=== PATIENT | female | born 1960 | race Caucasian/White ===

== ENCOUNTER → 2017-05-24 | Outpatient (CLI) | payer BC ==
[~2017-05-24] MED LIST: diphenhydrAMINE 50 MG/ML 1 ML VIAL IVP STA; methylPREDNISolone SOD SUCCI 125 MG/2 ML VIAL IV STA
[2017-05-24 13:36] LABS: Blood Urea Nitrogen 13 mg/dL (7-17); Non-African American GFR(MDRD) >60 (>60 ml/min/1.73 sqM)
[2017-05-24 16:11] VITALS: BP 143/83; PULSE 100; RESP 16
--- NOTE | 2017-05-24 16:26 | CT ---
EXAMINATION TYPE: CT urogram wo/w con DATE OF EXAM: 05/24/2017 HISTORY: Gross hematuria started [address] DLP: 2144mGycm Automated Exposure Control for Dose Reduction was Utilized. CONTRAST: CT scan of the abdomen and pelvis is performed with IV Contrast, patient injected with 100 mL of Omni paque 300. Multiphasic urogram protocol was performed with 3-D reformats performed at a separate work station for review. Coronal and sagittal reformats were obtained. COMPARISON: None. FINDINGS: LUNG BASES: No significant abnormality is appreciated. LIVER/GB: 1.2 cm indeterminate peripherally ill-defined hypoattenuated hepatic lesion within segment 6 of the liver on series 3 image 23 is seen. Minimal periportal edema is present, likely related to h ydration status. No biliary ductal dilatation is noted. On precontrast imaging there is no evidence o f hepatic steatosis. PANCREAS: No significant abnormality is seen. SPLEEN: No significant abnormality is seen. ADRENALS: No significant abnormality is seen. KIDNEYS: On the unenhanced images there are at least 7 punctate nonobstructing left renal calculi kaykay suring 1 to 2 cm each and at least 5 1 to 2 mm punctate nonobstructing right renal calculi. 3 mm left lower pole hypoattenuated lesion appears similar on cortical medullary phase as it does on delayed i maging and likely relates to a renal cyst. On delayed images there is no evidence of ureteral filling defect, hydronephrosis, or ureteral strict ure on the left. However, there is a long segment anterior eccentric filling defect within the right mid to distal ureter beginning at the level of L4 and extending over approximately 5.5 cm dilating th e ureter and measuring up to 1.2 x 1.2 cm in transverse by anterior posterior dimension such as on se paulo 14 image 40. This is incompletely obstructive creating moderate right hydroureteronephrosis and engorgement of the right pelvis. Tortuosity of the proximal right ureter is incidentally noted, likel y congenital. BOWEL: No significant abnormality is seen. Appendix is air-filled and within normal limits. No focal bowel wall thickening although evaluation for this is slightly limited given the lack of oral contra st. UTERUS/ADNEXA: No gross abnormality seen. LYMPH NODES: No greater than 1cm abdominal or pelvic lymph nodes are appreciated. Nonenlarged 4 mm ri ght common iliac lymph node is seen on series 9 image 48. [place] of vessels is seen anterior to t he right ureter on series 9 image 55 leading to the uterus and can be tracked to the gonadal vein. OSSEOUS STRUCTURES: Well-circumscribed sclerotic foci within the femoral heads are favored to relate to bone islands although nonspecific. URINARY BLADDER: There is near complete filling of the urinary bladder on delayed imaging with no janett reciable wall thickening or filling defect.. IMPRESSION: 1. Incompletely occlusive anterior eccentric 1.2 x 1.2 by approximately 5.5 cm right ureteral mass co ncerning for underlying neoplasm as it is nondependent in location. Single adjacent nonenlarged lymph node is seen of the common iliac chain. Urinary bladder and right kidney cortex appear unremarkable CT. This mass results in moderate right hydroureteronephrosis. 2. Bilateral punctate nonobstructing renal calculi and probable left renal cyst. 3. Hypoattenuated hepatic lesions that is nonspecific but does not fit CT criteria of a hepatic cyst or hemangioma. Surveillance is recommended as this could represent metastasis. A Yellow message has been communicated to Magnus Luevano MD~[id number] via the sougou system on 05/24/2017 4:23 PM, Message ID [id number].
== END | disposition home or self-care (01) ==
LOC: RADCTMAIN 12:55
PROVIDERS: ATTEND Urology
DX: N20.0 Calculus of kidney (principal)
CPT/HCPCS: 82565; 84520; 74178; 36415; 74400; J1200; J2930; Q9967

== ENCOUNTER 2017-05-30 13:02 | Day surgery (SDC) | payer BC ==
[2017-05-29 11:27] VITALS: BMI 24.0
[~2017-05-30 13:02] MED LIST changes: +ceFAZolin 1,000 MG in DEXTROSE/WATER 1 50ML.BAG IV ONE; -diphenhydrAMINE 50 MG/ML 1 ML VIAL IVP STA; -methylPREDNISolone SOD SUCCI 125 MG/2 ML VIAL IV STA
[2017-05-30] MEDS ORDERED: LIDOCAINE 1% 20 ML VIAL (10MG/ML) FOR IV START INTRADERMA ONE (13:28)
[2017-05-30] MEDS ORDERED: LACTATED RINGERS 1,000 ML IV ONE (13:28)
[2017-05-30 14:13] LABS: INR 1.2 (<1.2); Prothrombin Time 12.1 sec (9.0-12.0)
[2017-05-30] MEDS ORDERED: DEXAMETHASONE SOD PHOS (MDV) 100 MG/10 ML VIAL IVP ONE (14:20)
[2017-05-30] MEDS ORDERED: ONDANSETRON 4 MG/2 ML VIAL IVP ONE (14:20)
[2017-05-30] MEDS ORDERED: PHENYLEPHRINE-0.9% NACL SYG 1 MG/10 ML SYRINGE ONE (14:22)
[2017-05-30] MEDS ORDERED: PROPOFOL 10 MG/ML 20 ML VIAL IV ONE (14:22)
[2017-05-30] MEDS ORDERED: MIDAZOLAM 2 MG/2 ML VIAL ONE (14:22)
[2017-05-30] MEDS ORDERED: KETOROLAC 30 MG/ML 1 ML VIAL ONE (14:22)
[2017-05-30] MEDS ORDERED: ePHEDrine SULFATE/0.9% NACL/PF 50 MG/5 ML SYRINGE IV ONE (14:22)
[2017-05-30] MEDS ORDERED: LIDOCAINE 1% INJ 10MG/ML (20 ML MDV) ONE (14:22)
[2017-05-30] MEDS ORDERED: fentaNYL (PF) 50 MCG/ML 2 ML AMP ONE (14:22)
[2017-05-30] MEDS ORDERED: IOHEXOL 300 MG/ML 50 ML BOTTLE MISCELLANE ONE (14:43)
[2017-05-30 15:45] VITALS: TEMP 97.7
--- NOTE | 2017-05-30 15:48 | P.OP ---
Date of Procedure: 05/30/17 Preoperative Diagnosis: Gross hematuria, right hydronephrosis, right renal calculi Postoperative Diagnosis: Gross hematuria, right hydronephrosis, right renal calculi, right ureteral calculus Procedure(s) Performed: Cystoscopy, right retrograde pyelogram, right ureteroscopy with Holmium laser lithotripsy Anesthesia: DEBRA Surgeon: Magnus Luevano Estimated Blood Loss (ml): 5 IV fluids (ml): 600 Pathology: other (Calculus fragmented, sent for chemical analysis) Condition: stable Disposition: PACU Indications for Procedure: She is a 56-year-old woman with a history of microhematuria. She has a family history of bladder cancer. Urine cytology initially showed atypical cells, but repeat urine cytology was negative. A CT scan in 2011 showed normal upper tracts , as did a renal ultrasound in 2012. Cystoscopy in 2011 was normal. She now presents with gross hematuria, which was initially painless but she has now developed right flank pain. A CT urogram shows a right ureteral filling defect, and she will undergo cystoscopy, right retrograde pyelogram, and right ureteroscopy with biopsy and possible stent insertion soon. Operative Findings: Right distal ureteral calculus, measuring approximately 6-7 mm in diameter. 2- 3 mm right upper pole renal calculus. No evidence of malignancy. Description of Procedure: The patient was taken to the operating room and placed in the dorsolithotomy position, with legs supported in Ignacio stirrups. The external genitalia was prepped and draped sterilely. The 30 lens was used to introduce the 19-Sudanese Stortz cystoscopic sheath through the urethra and into the bladder under direct vision. The bladder was examined in its entirety. Both ureteral orifices were normal anatomic location and configuration, and clear urine effluxed from the left. No urine effluxed from the right ureteral orifice. No tumors or foreign bodies were seen. Using a 10-Sudanese cone-tip catheter, a right retrograde pyelogram was performed. A filling defect was seen within the right distal ureter, approximately 2 cm proximal to the ureteral orifice. The A[facility]I semirigid ureteroscope was advanced into the bladder, and the right ureteral orifice was cannulated. The ureteroscope was advanced, and a calculus was identified measuring 6-7 mm in size. The 200 micron Holmium laser probe was passed through the ureteroscope, and lithotripsy was performed. The calculus fragmented readily. The ureteroscope was then advanced up to the ureteropelvic junction. No additional calculi were seen within the ureter. There was no evidence of a ureteral tumor. A Glidewire was passed up the ureteroscope and into the right renal pelvis. The semirigid ureteroscope was removed, and the Olympus flexible ureteroscope was passed over the wire, up to the right renal pelvis. Each calyx was examined. There was no evidence of malignancy. There was no active bleeding. A 2-3 mm calculus was seen within an upper pole calyx. This was fragmented. An attempt was made to retrieve a calculus fragment measuring approximately 2 mm in diameter, but this was unsuccessful. The ureteroscope was slowly withdrawn under direct vision. There was no evidence of ureteral trauma, and no residual calculus fragments were noted within the ureter. The cystoscope was passed into the bladder once again, and the bladder was drained. Several tiny calculus fragments were retrieved, the largest of which measured approximately 1 mm in size and was sent for chemical analysis. The patient tolerated the procedure well and was taken to the recovery room in stable condition.
--- NOTE | 2017-05-30 16:24 | FL ---
Fluoroscopy HISTORY: Right ureteral stone 50 seconds fluoroscopy time supplied to the referring clinician. 6 intraoperative C-arm images docum ent the procedure. See dictated report from urology.
[2017-05-30 16:27] VITALS: BP 144/75; PULSE 84; RESP 15
== END 2017-05-30 16:43 | disposition home or self-care (01) ==
LOC: OR 13:02
PROVIDERS: ATTEND Urology
DX: N13.2 Hydronephrosis with renal and ureteral calculous obstruction (principal); R31.0 Gross hematuria; I34.1 Nonrheumatic mitral (valve) prolapse; Z80.52 Family history of malignant neoplasm of bladder; Z79.01 Long term (current) use of anticoagulants; Z79.891 Long term (current) use of opiate analgesic; Z79.899 Other long term (current) drug therapy; Z87.440 Personal history of urinary (tract) infections; Z91.041 Radiographic dye allergy status
CPT/HCPCS: 52353; 85610; 82365; 74420; C1758; C1769; J2250; J2405; J2001; J3010; J1885; J0690; J1100; J2370; J2704; Q9967

== ENCOUNTER → 2017-07-31 | Outpatient (CLI) | payer BC ==
--- NOTE | 2017-08-02 07:26 | MM ---
Reason for exam: screening (asymptomatic). Last mammogram was performed 1 year and 1 month ago. History: Family history of breast cancer in maternal grandmother at age 80. Benign cyst aspiration of the left breast, January 22, 2008. Took hormonal contraceptives for 14 years 5 months beginning at age 37. Physical Findings: A clinical breast exam by your physician is recommended on an annual basis and results should be correlated with mammographic findings. MG Screening Mammo w CAD Bilateral CC and MLO view(s) were taken. Prior study comparison: June 28, 2016, bilateral MG screening mammo w CAD. May 27, 2015, bilateral MG screening mammo w CAD. The breast tissue is heterogeneously dense. This may lower the sensitivity of mammography. Stable benign calcifications. There is no discrete abnormality. No significant changes when compared with prior studies. ASSESSMENT: Benign, BI-RAD 2 RECOMMENDATION: Routine screening mammogram of both breasts in 1 year.
== END | disposition home or self-care (01) ==
LOC: RADMAMWWP 09:05
PROVIDERS: ATTEND Obstetrics & Gynecology
DX: Z12.31 Encounter for screening mammogram for malignant neoplasm of breast (principal)
CPT/HCPCS: 77067

== ENCOUNTER → 2018-09-15 | Outpatient (CLI) | payer BC ==
--- NOTE | 2018-09-16 17:20 | BD ---
EXAMINATION TYPE: Axial Bone Density DATE OF EXAM: 09/15/2018 COMPARISON: NONE CLINICAL HISTORY: 58-year-old female asymptomatic postmenopausal screening Height: 5 FT 8 IN Weight: 161 FRAX RISK QUESTIONS: RISK FACTORS HISTORY OF: Active: YES Postmenopausal woman: [place] AGE 52 NO REAL SYMPTOMS OF NOW Lost more than 2 inches in height since high school: YES MEDICATIONS: Additional Medications: COUMADIN, MAXALT, Additional History: STROKE AGE 51 EXAM MEASUREMENTS: Bone mineral densitometry was performed using the [employer] System. Bone mineral density as measured about the Lumbar spine is: ----- L1-L4(G/cm2): 1.025 T Score Values are as follows: ----- L2: -1.3 ----- L3: -1.1 ----- L4: -1.5 ----- L1-L4: -1.3 Bone mineral density has: DECREASED -8.7 % since study of: 2013 Bone mineral density about the R hip (g/cm2): 0.760 Bone mineral density about the L hip (g/cm2): 0.763 T Score values are as follows: -----R Neck: -2.0 -----L Neck: -2.0 -----R Total: -1.2 -----L Total: -1.5 Bone mineral density has: DECREASED -3.3 % since study of: 2013 IMPRESSION: Osteopenia (T Score between -2.5 and -1). There is slightly increased risk of fracture and the patient may be considered for treatment. Re-Screen 2-5 years. NOTE: T-SCORE=SD OF THE YOUNG ADULT MEAN.
== END | disposition home or self-care (01) ==
LOC: RADBDWWP 16:26
PROVIDERS: ATTEND Family Medicine
DX: M85.80 Other specified disorders of bone density and structure, unspecified site (principal); Z78.0 Asymptomatic menopausal state
CPT/HCPCS: 77080

== ENCOUNTER → 2018-09-24 | Outpatient (CLI) | payer BC ==
--- NOTE | 2018-09-24 15:01 | MM ---
Reason for exam: screening (asymptomatic). Last mammogram was performed 1 year and 2 months ago. History: Family history of breast cancer in maternal grandmother at age 80. Benign cyst aspiration of the left breast, January 22, 2008. Took hormonal contraceptives for 14 years 5 months beginning at age 37. Physical Findings: A clinical breast exam by your physician is recommended on an annual basis and results should be correlated with mammographic findings. MG Screening Mammo w CAD Bilateral CC, MLO, and XCCL view(s) were taken. Prior study comparison: July 31, 2017, bilateral MG screening mammo w CAD. June 28, 2016, bilateral MG screening mammo w CAD. The breast tissue is heterogeneously dense. This may lower the sensitivity of mammography. There are benign appearing round vascular calcifications bilaterally. There is no discrete abnormality. ASSESSMENT: Benign, BI-RAD 2 RECOMMENDATION: Routine screening mammogram in 1 year.
== END ==
LOC: RADMAMWWP 09:40
PROVIDERS: ATTEND Obstetrics & Gynecology
DX: Z12.31 Encounter for screening mammogram for malignant neoplasm of breast (principal)
CPT/HCPCS: 77067

== ENCOUNTER → 2019-09-28 | Outpatient (CLI) | payer OTHER ==
--- NOTE | 2019-09-29 08:44 | MM ---
Reason for exam: screening (asymptomatic). Last mammogram was performed 1 year ago. History: Family history of breast cancer in maternal grandmother at age 80. Benign cyst aspiration of the left breast, January 22, 2008. Took hormonal contraceptives for 14 years 5 months beginning at age 37. Physical Findings: A clinical breast exam by your physician is recommended on an annual basis and results should be correlated with mammographic findings. MG Screening Mammo w CAD Bilateral CC and MLO view(s) were taken. XCCL view(s) were taken of the right breast. Prior study comparison: September 24, 2018, bilateral MG screening mammo w CAD. July 31, 2017, bilateral MG screening mammo w CAD. The breast tissue is heterogeneously dense. This may lower the sensitivity of mammography. Benign appearing bilateral calcifications. No suspicious abnormality. No significant changes when compared with prior studies. ASSESSMENT: Benign, BI-RAD 2 RECOMMENDATION: Routine screening mammogram of both breasts in 1 year.
== END | disposition home or self-care (01) ==
LOC: RADMAMWWP 12:24
PROVIDERS: ATTEND Obstetrics & Gynecology
DX: Z12.31 Encounter for screening mammogram for malignant neoplasm of breast (principal)
CPT/HCPCS: 77067

== ENCOUNTER → 2020-11-28 | Outpatient (CLI) | payer OTHER ==
--- NOTE | 2020-11-28 14:24 | MM ---
Reason for exam: screening (asymptomatic). Last mammogram was performed 1 year and 2 months ago. History: Patient is postmenopausal. Family history of breast cancer in maternal grandmother at age 80. Benign cyst aspiration of the left breast, January 22, 2008. Took hormonal contraceptives for 14 years 5 months beginning at age 37. Physical Findings: A clinical breast exam by your physician is recommended on an annual basis and results should be correlated with mammographic findings. MG Screening Mammo w CAD Bilateral CC and MLO view(s) were taken. Prior study comparison: September 28, 2019, bilateral MG screening mammo w CAD. September 24, 2018, bilateral MG screening mammo w CAD. The breast tissue is heterogeneously dense. This may lower the sensitivity of mammography. There are benign appearing round, vascular, dystrophic calcifications bilaterally. There is no discrete abnormality. ASSESSMENT: Benign, BI-RAD 2 RECOMMENDATION: Routine screening mammogram of both breasts in 1 year.
== END | disposition home or self-care (01) ==
LOC: RADMAMWWP 08:12
PROVIDERS: ATTEND Obstetrics & Gynecology
DX: Z12.31 Encounter for screening mammogram for malignant neoplasm of breast (principal); Z78.0 Asymptomatic menopausal state; Z80.3 Family history of malignant neoplasm of breast
CPT/HCPCS: 77067

== ENCOUNTER → 2021-12-12 | Outpatient (CLI) | payer OTHER ==
--- NOTE | 2021-12-12 16:12 | BD ---
EXAMINATION TYPE: Axial Bone Density DATE OF EXAM: 12/12/2021 CLINICAL HISTORY: 61 years year old Female. ICD-10 CODE: Z78.0 POST MENOPAUSAL Height: 5 FT 8 1/2 IN Weight: 162 FRAX RISK QUESTIONS: Alcohol (3 or more units per day): NO Family History (Parent hip fracture): NO Glucocorticoids (More than 3mos): NO (Ex: prednisone, prednisolone, methylprednisolone, dexamethasone, and hydrocortisone). History of Fracture in Adulthood: NO Secondary Osteoporosis: 1. Type 1 Diabetes: NO 2. Hyperthyroidism: NO 3. Menopause before 45: NO 4. Malnutrition: NO 5. Chronic liver disease: NO Rheumatoid Arthritis: NO Current Tobacco Use: NO RISK FACTORS HISTORY OF: Surgery to Spine/Hip(right/left)/Wrist (right/left): NO Family History of Osteoporosis: NO Active: YES Diet low in dairy products/other sources of calcium: NO Postmenopausal woman: YES Take estrogen and/or progesterone medications: NO Lost more than 2 inches in height since high school: YES Frequent falls: NO Poor Health: GOOD Hyperparathyroidism: NO Adrenal Insufficiency: NO MEDICATIONS: Additional Medications: COUMADIN, MAXALT ON OCCASION, H2 O PILL Additional History: EXAM MEASUREMENTS: Bone mineral densitometry was performed using the [employer] System. Bone mineral density as measured about the Lumbar spine is: ----- L1-L4(G/cm2): 0.977 T Score Values are as follows: ----- L1: -1.9 ----- L2: -1.9 ----- L3: -1.4 ----- L4: -1.8 ----- L1-L4: -1.7 Bone mineral density has: DECREASED -4.0 % since study of: 2018 Bone mineral density about the R hip (g/cm2): 0.716 Bone mineral density about the L hip (g/cm2): 0.729 T Score values are as follows: -----R Neck: -2.3 -----L Neck: -2.2 -----R Total: -1.5 -----L Total: -1.9 Bone mineral density has: DECREASED -4.9 % since study of: 2018 FRAX%s: The graph provided illustrates a 10.9 % chance for a major osteoporotic fx and a 1.9 % chance for the hips probability for fx in 10 years time. IMPRESSION: Osteopenia (T Score between -2.5 and -1). There is slightly increased risk of fracture and the patient may be considered for treatment. Re-Screen 2-5 years. NOTE: T-SCORE=SD OF THE YOUNG ADULT MEAN.
--- NOTE | 2021-12-13 17:36 | MM ---
Reason for Exam: Screening (asymptomatic). Last screening mammogram was performed 12 month(s) ago. Patient History: Menarche at age 17. First Full-Term at age 30. Postmenopausal. Hormonal Contraceptives for 14 years, 5 months, from age 37 until age 51. 01/22/2008, Benign Cyst Aspiration on the left side. Maternal grandmother had breast cancer, age 80. Risk Values: Angi 5 year model risk: 1.5%. NCI Lifetime model risk: 7.4%. Prior Study Comparison: 09/24/2018 Bilateral Screening Mammogram, [facility]. 09/28/2019 Bilateral Screening Mammogram, [facility]. 11/28/2020 Bilateral Screening Mammogram, [facility]. Tissue Density: The breast tissue is heterogeneously dense. This may lower the sensitivity of mammography. Findings: Analyzed By CAD. No suspicious spiculated or lobular masses, clusters of microcalcifications, architectural distortion, or other secondary signs of malignancy radiographically apparent. Benign scattered calcification and vascular calcification is present bilaterally. No significant interval change is evident. Overall Assessment: Benign, BI-RAD 2 Management: Screening Mammogram of both breasts in 1 year. A clinical breast exam by your physician is recommended on an annual basis and results should be correlated with mammographic findings. Electronically signed and approved by: Stephen Evangelista D.O. Radiologis
== END | disposition home or self-care (01) ==
LOC: RADMAMWWP 10:48
PROVIDERS: ATTEND Family Medicine
DX: Z13.820 Encounter for screening for osteoporosis (principal); M85.89 Other specified disorders of bone density and structure, multiple sites; Z78.0 Asymptomatic menopausal state
CPT/HCPCS: 77067; 77080

== ENCOUNTER → 2022-12-13 | Outpatient (CLI) | payer OTHER ==
--- NOTE | 2022-12-14 06:59 | MM ---
Reason for Exam: Screening (asymptomatic). Last mammogram was performed 1 year(s) and 1 month(s) ago. Patient History: Menarche at age 17. First Full-Term at age 30. Postmenopausal. Hormonal Contraceptives for 14 years, 5 months, from age 37 until age 51. 01/22/2008, Benign Cyst Aspiration on the left side. Maternal grandmother had breast cancer, age 80. Maternal aunt had breast cancer, age 85. Risk Values: Angi 5 year model risk: 1.5%. NCI Lifetime model risk: 7.2%. Prior Study Comparison: 09/28/2019 Bilateral Screening Mammogram, [facility]. 11/28/2020 Bilateral Screening Mammogram, [facility]. 12/12/2021 Bilateral MG screening mammo w CAD, [facility]. Tissue Density: The breast tissue is heterogeneously dense. This may lower the sensitivity of mammography. Findings: Analyzed By CAD. There are a few scattered and loosely grouped benign-appearing round calcifications bilaterally redemonstrated. Benign-appearing vascular calcification bilaterally is redemonstrated. There is no suspicious new group of microcalcifications or new suspicious mass in either breast. Overall Assessment: Benign, BI-RAD 2 Management: Screening Mammogram of both breasts in 1 year. . Patient should continue monthly self-breast exams. A clinical breast exam by your physician is recommended on an annual basis. This exam should not preclude additional follow-up of suspicious palpable abnormalities. Note on Angi scores and lifetime risk: 1. A Angi score greater than 3% is considered moderate risk. If this is the case, consider specialist referral to assess eligibility for a risk reducing agent. 2. If overall lifetime risk for the development of breast cancer is 20% or higher, the patient may qualify for future screening with alternating mammogram and breast MRI. Electronically signed and approved by: Jad Palma M.D.
== END | disposition home or self-care (01) ==
LOC: RADMAMWWP 07:51
PROVIDERS: ATTEND Family Medicine
DX: Z12.31 Encounter for screening mammogram for malignant neoplasm of breast (principal); Z78.0 Asymptomatic menopausal state; Z80.3 Family history of malignant neoplasm of breast
CPT/HCPCS: 77063; 77067

== ENCOUNTER → 2023-06-13 | Outpatient (CLI) | payer OTHER ==
[2023-06-13 16:47] LABS: % Iron Saturation 33.23 (12.00-45.00); Albumin 4.2 g/dL (3.8-4.9); Calcium 10.3 mg/dL (8.7-10.3); Iron 108 UG/DL (50-170); Total Iron Binding Capacity 325 UG/DL (228-460)
[2023-06-13 17:31] LABS: INR 3.44 sec (0.93-1.11); Prothrombin Time 34.3 sec (9.9-11.9)
== END | disposition home or self-care (01) ==
LOC: LABWHC1 09:04
PROVIDERS: ATTEND Family Medicine
DX: E83.52 Hypercalcemia (principal); R71.8 Other abnormality of red blood cells; Z79.01 Long term (current) use of anticoagulants
CPT/HCPCS: 36415; 82040; 82306; 82310; 82565; 82728; 83540; 83550; 83970; 85610

== ENCOUNTER → 2023-09-02 | Outpatient (CLI) | payer OTHER ==
[2023-09-02 09:04] LABS: Ionized Calcium 5.5 mg/dL (4.5-5.3)
[2023-09-02 15:54] LABS: Calcium 10.8 mg/dL (8.7-10.3)
== END | disposition home or self-care (01) ==
LOC: LABWHC1 08:07
PROVIDERS: ATTEND Family Medicine
DX: E83.52 Hypercalcemia (principal); Z86.73 Personal history of transient ischemic attack (TIA), and cerebral infarction without residual deficits
CPT/HCPCS: 36415; 82306; 82310; 82330; 83970

== ENCOUNTER → 2023-11-27 | Outpatient (CLI) | payer OTHER ==
[2023-11-27 14:28] LABS: HCT 49.6 % (37.2-46.3); HGB 16.2 g/dL (12.0-15.0); MCH 30.9 pg (27.0-32.0); MCHC 32.7 g/dL (32.0-37.0); MCV 94.7 FL (80.0-97.0); Mean Platelet Volume 9.9 FL (9.5-12.2); NRBC Per 100 WBC 0 X 10*3/uL (0.00-0.01); Platelet Count 315 X 10*3/uL (140-440); RBC 5.24 X 10*6/uL (4.10-5.20)
[2023-11-27 15:33] LABS: INR 2.53 sec (0.93-1.11); Prothrombin Time 25.7 sec (9.9-11.9)
== END | disposition home or self-care (01) ==
LOC: LABWHC1 07:49
PROVIDERS: ATTEND Family Medicine
DX: Z79.01 Long term (current) use of anticoagulants (principal)
CPT/HCPCS: 36415; 85027; 85610

== ENCOUNTER → 2023-12-16 | Outpatient (CLI) | payer OTHER ==
--- NOTE | 2023-12-16 16:37 | BD ---
EXAMINATION TYPE: Axial Bone Density DATE OF EXAM: 12/16/2023 CLINICAL HISTORY: 63 years old Female. ICD-10 CODE: E21.3 M85.88 Height: 68.5 Weight: 172 FRAX RISK QUESTIONS: Family History (Parent hip fracture): no History of Fracture in Adulthood: no Secondary Osteoporosis: no RISK FACTORS HISTORY OF: Surgery to Spine/Hip(right/left)/Wrist (right/left): no MEDICATIONS: Thyroid Medications: no Osteoporosis Medications: no EXAM MEASUREMENTS: Bone mineral densitometry was performed using the [employer] System. Bone mineral density about the R Wrist (g/cm2): 0.628 T Score values are as follows: -----Dist. R+U: -1.6 -----Prox. R+U: -0.6 -----Radius total: -0.8 Z Score values are as follows: -----Dist. R+U: -0.4 -----Prox. R+U: 0.5 -----Radius total: 0.4 Bone mineral density baseline FRAX%s: see bone density dated same IMPRESSION: Normal (Values between +1 and -1 indicate normal bone mass) within the right forearm. See separate a dditional bone density study for the axial skeleton. NOTE: T-SCORE=SD OF THE YOUNG ADULT MEAN.
--- NOTE | 2023-12-16 16:38 | BD ---
EXAMINATION TYPE: Axial Bone Density DATE OF EXAM: 12/16/2023 CLINICAL HISTORY: 63 years old Female. ICD-10 CODE: Z12.31 SCR MAMMO E21.3 HYPERPARATHYROID M85.88 O TH DIS Height: 68.5 Weight: 172 FRAX RISK QUESTIONS: Family History (Parent hip fracture): no History of Fracture in Adulthood: no Secondary Osteoporosis: no RISK FACTORS HISTORY OF: Surgery to Spine/Hip(right/left)/Wrist (right/left): no MEDICATIONS: Thyroid Medications: no Osteoporosis Medications: no EXAM MEASUREMENTS: Bone mineral densitometry was performed using the [employer] System. Bone mineral density as measured about the Lumbar spine is: ----- L1-L4(G/cm2): 0.932 T Score Values are as follows: ----- L1: -1.9 ----- L2: -2.4 ----- L3: -1.9 ----- L4: -2.2 ----- L1-L4: -2.1 Z Score Values are as follows: ----- L1: -1.0 ----- L2: -1.4 ----- L3: -1.0 ----- L4: -1.2 ----- L1-L4: -1.1 Bone mineral density has: Decreased -4.6% since study of: 12/12/2021 Bone mineral density about the R hip (g/cm2): 0.813 Bone mineral density about the L hip (g/cm2): 0.776 T Score values are as follows: -----R Neck: -2.5 -----L Neck: -2.6 -----R Total: -1.5 -----L Total: -1.8 Z Score values are as follows: -----R Neck: -1.4 -----L Neck: -1.5 -----R Total: -0.8 -----L Total: -1. Bone mineral density has: Decreased -0.3% since study of: 12/12/2021 FRAX%s: The graph provided illustrates a 13.1% chance for a major osteoporotic fx and a 2.7% chance f or the hips probability for fx in 10 years time. IMPRESSION: Osteoporosis (T Score less than -2.5). There is increased fracture risk and therapy is usually indicated based on age. Re-Screen 1-2 years. NOTE: T-SCORE=SD OF THE YOUNG ADULT MEAN.
--- NOTE | 2023-12-16 18:53 | MM ---
Reason for Exam: Screening (asymptomatic). Last screening mammogram was performed 12 month(s) ago. Patient History: Menarche at age 17. First Full-Term at age 30. Postmenopausal. Hormonal Contraceptives for 14 years, 5 months, from age 37 until age 51. 01/22/2008, Benign Cyst Aspiration on the left side. Maternal grandmother had breast cancer, age 80. Maternal aunt had breast cancer, age 85. Maternal cousin had breast cancer, age 50. Risk Values: Angi 5 year model risk: 1.5%. NCI Lifetime model risk: 7.0%. Prior Study Comparison: 11/28/2020 Bilateral Screening Mammogram, [facility]. 12/12/2021 Bilateral MG screening mammo w CAD, [facility]. 12/13/2022 Bilateral MG 3D screening mammo w/cad, [facility]. Tissue Density: The breasts are heterogeneously dense, which may obscure small masses. Findings: Analyzed By CAD. Scattered benign punctate and vascular calcifications are unchanged. There is no suspicious group of microcalcifications or new suspicious mass in either breast. Overall Assessment: Benign, BI-RAD 2 Management: Screening Mammogram of both breasts in 1 year. . Patient should continue monthly self-breast exams. A clinical breast exam by your physician is recommended on an annual basis. This exam should not preclude additional follow-up of suspicious palpable abnormalities. Note on Angi scores and lifetime risk: 1. A Angi score greater than 3% is considered moderate risk. If this is the case, consider specialist referral to assess eligibility for a risk reducing agent. 2. If overall lifetime risk for the development of breast cancer is 20% or higher, the patient may qualify for future screening with alternating mammogram and breast MRI. Electronically signed and approved by: Josue Fay M.D. Radiologist
== END | disposition home or self-care (01) ==
LOC: RADMAMWWP 06:54
PROVIDERS: ATTEND Family Medicine
DX: Z12.31 Encounter for screening mammogram for malignant neoplasm of breast (principal); M85.89 Other specified disorders of bone density and structure, multiple sites; M81.0 Age-related osteoporosis without current pathological fracture; Z78.0 Asymptomatic menopausal state; Z80.3 Family history of malignant neoplasm of breast
CPT/HCPCS: 77063; 77067; 77080; 77081

== ENCOUNTER → 2024-05-21 | Outpatient (CLI) | payer OTHER ==
[2024-05-21 15:32] LABS: Basophils # (A) 0.04 X 10*3/uL (0.00-0.10); Basophils % (A) 0.7 %; Eosinophils # (A) 0.12 X 10*3/uL (0.04-0.35); HCT 46.6 % (37.2-46.3); HGB 15.3 g/dL (12.0-15.0); Lymphocytes # (A) 1.95 X 10*3/uL (0.90-5.00); Lymphocytes % (A) 32.7 %; MCH 30.2 pg (27.0-32.0); MCHC 32.8 g/dL (32.0-37.0); MCV 91.9 FL (80.0-97.0); Mean Platelet Volume 9.9 FL (9.5-12.2); Monocytes # (A) 0.61 X 10*3/uL (0.20-1.00); Monocytes % (A) 10.2 %; NRBC Per 100 WBC 0 X 10*3/uL (0.00-0.01); Neutrophils # (A) 3.24 X 10*3/uL (1.80-7.70); Neutrophils % (A) 54.2 %; Platelet Count 296 X 10*3/uL (140-440); RBC 5.07 X 10*6/uL (4.10-5.20); RDW 13.4 % (11.5-14.5); WBC 5.97 X 10*3/uL (4.50-10.00)
[2024-05-21 15:35] LABS: INR 2.77 sec (0.93-1.11)
[2024-05-21 15:41] LABS: ALT 16 U/L (8-44); AST 21 U/L (13-35); Albumin 4.4 g/dL (3.8-4.9); Albumin/Globulin Ratio 1.91 Ratio (1.60-3.17); Alkaline Phosphatase 94 U/L (41-126); BUN/Creat Ratio 16.89 Ratio (12.00-20.00); Blood Urea Nitrogen 15.2 mg/dL (9.0-27.0); Calcium 9.5 mg/dL (8.7-10.3); Carbon Dioxide 27.8 mmol/L (21.6-31.8); Chloride 103 mmol/L (96-109); Chol/HDL Ratio 4.28 Ratio; Globulin 2.3 g/dL (1.6-3.3); Glucose 103 mg/dL (70-110); LDL Cholesterol,Calculated 152.6 mg/dL (0.0-131.0); Potassium 4.2 mmol/L (3.5-5.5); Sodium 140 mmol/L (135-145); Total Bilirubin 0.5 mg/dL (0.3-1.2); Total Protein 6.7 g/dL (6.2-8.2)
== END | disposition home or self-care (01) ==
LOC: LABWHC1 07:59
PROVIDERS: ATTEND Family Medicine
DX: E78.00 Pure hypercholesterolemia, unspecified (principal); I10 Essential (primary) hypertension; M81.0 Age-related osteoporosis without current pathological fracture; R71.8 Other abnormality of red blood cells; Z86.73 Personal history of transient ischemic attack (TIA), and cerebral infarction without residual deficits; Z98.890 Other specified postprocedural states
CPT/HCPCS: 36415; 80053; 80061; 82306; 83970; 84443; 85025; 85610

== ENCOUNTER → 2024-09-11 | Outpatient (CLI) | payer OTHER ==
--- NOTE | 2024-09-11 08:26 | CT ---
EXAMINATION TYPE: CT abdomen pelvis wo con DATE OF EXAM: 09/11/2024 HISTORY: gross hematuria, history of stones, family history of bladder CA CT DLP: 427.6 mGycm. Automated Exposure Control for Dose Reduction was Utilized. TECHNIQUE: CT scan of the abdomen and pelvis is performed without oral or IV contrast. COMPARISON: CT urogram 2016 FINDINGS: Within the limitations of a non-contrast study, the following observations are made. LUNG BASES: Mild bibasilar linear scarring. LIVER/GB: No significant abnormality is appreciated. PANCREAS: No significant abnormality is seen. SPLEEN: No significant abnormality is seen. ADRENALS: No significant abnormality is seen. KIDNEYS: There are small bilateral renal calculi redemonstrated. There are approximate 8-10 left-side d renal calculi measuring up to 5 mm in size coronal image 49. There are approximately 3-4 right mervat l calculi measuring up to 5 mm coronal image 40. No hydronephrosis or obstructing ureter calculi seen bilaterally. No intraluminal calculi in the poorly distended bladder. BOWEL: Low-lying cecum into the right pelvis. Appendix appears within normal limits from the cecum. N o abnormal bowel dilatation. GENITAL ORGANS: No gross abnormality seen. LYMPH NODES: No greater than 1cm abdominal or pelvic lymph nodes are appreciated. OSSEOUS STRUCTURES: No significant abnormality is seen. OTHER: No significant additional abnormality is seen. IMPRESSION: Bilateral nonobstructing renal calculi are present as detailed above. [facility], , 09/11/2024 8:23 AM
== END | disposition home or self-care (01) ==
LOC: RADCTMAIN 07:41
PROVIDERS: ATTEND Family Medicine
DX: N20.0 Calculus of kidney (principal); Z87.442 Personal history of urinary calculi
CPT/HCPCS: 74176

== ENCOUNTER → 2024-09-22 | Outpatient (CLI) | payer OTHER ==
[2024-09-22 15:00] LABS: Basophils # (A) 0.06 X 10*3/uL (0.00-0.10); Basophils % (A) 0.9 %; Eosinophils # (A) 0.09 X 10*3/uL (0.04-0.35); Eosinophils % (A) 1.3 %; HCT 44.6 % (37.2-46.3); HGB 14.9 g/dL (12.0-15.0); Lymphocytes # (A) 2.07 X 10*3/uL (0.90-5.00); Lymphocytes % (A) 30.4 %; MCH 30.7 pg (27.0-32.0); MCHC 33.4 g/dL (32.0-37.0); Mean Platelet Volume 9.7 FL (9.5-12.2); Monocytes # (A) 0.66 X 10*3/uL (0.20-1.00); Monocytes % (A) 9.7 %; NRBC Per 100 WBC 0 X 10*3/uL (0.00-0.01); Neutrophils % (A) 57.4 %; Platelet Count 287 X 10*3/uL (140-440); RBC 4.85 X 10*6/uL (4.10-5.20); RDW 13.4 % (11.5-14.5)
[2024-09-22 15:17] LABS: Blood Urea Nitrogen 14.4 mg/dL (9.0-27.0); Calcium 9.6 mg/dL (8.7-10.3); Carbon Dioxide 29.6 mmol/L (21.6-31.8); Chloride 103 mmol/L (96-109); Glucose 115 mg/dL (70-110); Potassium 3.8 mmol/L (3.5-5.5); Sodium 144 mmol/L (135-145)
== END | disposition home or self-care (01) ==
LOC: LABPAT 10:22
PROVIDERS: ATTEND Urology
DX: Z01.812 Encounter for preprocedural laboratory examination (principal); N20.0 Calculus of kidney
CPT/HCPCS: 80048; 85025

== ENCOUNTER 2024-10-01 09:55 | Day surgery (SDC) | payer OTHER ==
--- NOTE | 2024-09-30 21:53 | P.GSHP ---
History of Present Illness H&P Date: 09/30/24 Chief Complaint: Hematuria, low back pain The patient is a 64-year-old white female with a history of kidney stones. She underwent excision of a parathyroid adenoma in November 2023, and her serum calcium level has normalized. CT scan shows small bilateral renal calculi. She reports midline low back pain as well as intermittent hematuria, and has elected to undergo ureteroscopic removal of her renal calculi. - Constitutional Constitutional: Denies chills, Denies fever - Gastrointestinal Gastrointestinal: Denies nausea, Denies vomiting - Genitourinary (Female) Genitourinary: Reports dysuria, Reports flank pain, Reports hematuria, Reports kidney stones Past Medical History Past Medical History: CVA/TIA, Hypertension Additional Past Medical History / Comment(s): HX: CVA- 2011 no residual effects, migraines,kidney stones History of Any Multi-Drug Resistant Organisms: None Reported Past Surgical History: Section, Uterine Ablation Additional Past Surgical History / Comment(s): parathyroid adenoma removed 01/05 Past Anesthesia/Blood Transfusion Reactions: No Reported Reaction Smoking Status: Never smoker - Past Family History Mother Family Medical History: Cancer Additional Family Medical History / Comment(s): bladder cancer Father Family Medical History: Cancer Additional Family Medical History / Comment(s): lymphoma Daughter(s) Family Medical History: Cancer Additional Family Medical History / Comment(s): thyroid Medications and Allergies Home Medications Medication Instructions Recorded Confirmed Type Multivitamin [Multivitamins Adult 1 each PO DAILY 05/29/17 09/29/24 History Gummies] Rizatriptan Benzoate [Maxalt REVERSE ENGINEER] 10 mg PO DAILY PRN 05/29/17 09/29/24 History Warfarin [Coumadin] 2.5 mg PO SUTH 05/29/17 09/29/24 History Warfarin [Coumadin] 5 mg PO MOTUWEFRSA 05/29/17 09/29/24 History Calcium Crb,Cit/D3/Min34/Stormy 1 each PO DAILY 09/29/24 09/29/24 History [Citracal Plus Bone Density Tab] Cholecalciferol [Vitamin D3 (10 10 mcg PO DAILY 09/29/24 09/29/24 History Mcg = 400 Iu)] hydroCHLOROthiazide 12.5 mg PO DAILY 09/29/24 09/29/24 History Allergies Allergy/AdvReac Type Severity Reaction Status Date / Time Iodinated Contrast Media Allergy Rash/Hives Verified 09/29/24 12:26 [Iodinated Contrast- Oral and IV Dye] Surgical - Exam - General well developed, well nourished, no distress - Respiratory normal respiratory effort - Abdomen Abdomen: soft, non tender, no guarding, no rigid, no rebound - Psychiatric oriented to time, oriented to person, oriented to place, speech is normal, memory intact Results - Imaging CT scan - abdomen: report reviewed, image reviewed Assessment and Plan (1) Calculus of kidney Status: Acute Code(s): N20.0 - CALCULUS OF KIDNEY SNOMED Code(s): 08278080 Plan: Cystoscopy, bilateral ureteroscopy with Holmium laser lithotripsy and stone basketing, bilateral ureteral stent insertion. The procedures been reviewed in detail with the patient, who is aware of risks which include anesthesia, bleeding, infection, inability to remove all calculi, and ureteral injury.
[~2024-10-01 09:55] MED LIST changes: +LIDOCAINE 1% (10MG/ML) FOR IV START INTRADERMA PRN; -ceFAZolin 1,000 MG in DEXTROSE/WATER 1 50ML.BAG IV ONE; +droPERidol 2.5 MG/ML VIAL IVP ONE
--- NOTE | 2024-10-01 10:17 | XR ---
EXAMINATION TYPE: XR KUB DATE OF EXAM: 10/01/2024 10:10 AM COMPARISON: None. CLINICAL INDICATION: Female, 64 years old with history of N20.0 Bilateral Renal Calculi, TECHNIQUE: Single view of the abdomen. FINDINGS: Right renal calculi: Right renal calculus measures 3.8 cm. Right ureteral calculi: None Visualized. Left renal calculi: 2 or 3 left-sided renal calculi are seen measuring up to 3.5 mm. Left ureteral calculi: None Visualized. Pelvic calcifications: Left-sided phlebolith-like calcifications seen. Single right-sided phlebolith -like calcification noted. Bowel gas pattern is unremarkable. No free air. No mass effects. Focal sclerosis left femoral head likely reflects a bone island in the absence of primary malignancy. Correlate clinically. IMPRESSION: 1. As above [facility], , 10/01/2024 10:15 AM
[2024-10-01] MEDS: IV FLUID CONTINUATION 1,000 ML IV ONE ×2 (10:51→15:42)
[2024-10-01] MEDS: LACTATED RINGERS 1,000 ML IV SCH (10:51)
[2024-10-01] MEDS: DEXAMETHASONE SOD PHOSPHATE 4 MG/ML 1 ML VIAL IV ONE (10:58)
[2024-10-01] MEDS: ONDANSETRON 4 MG/2 ML VIAL IVP ONE (10:58)
[2024-10-01 11:22] LABS: Prothrombin Time 11.1 sec (10.0-12.5)
[2024-10-01] MEDS ORDERED: MIDAZOLAM 2 MG/2 ML VIAL ONE (12:27)
[2024-10-01] MEDS ORDERED: GLYCOPYRROLATE 0.2 MG/ML 2 ML VIAL ONE (12:27)
[2024-10-01] MEDS ORDERED: NEOSTIGMINE 1 MG/ML 10 ML VIAL ONE (12:27)
[2024-10-01] MEDS ORDERED: PROPOFOL 10 MG/ML 20 ML VIAL IV ONE (12:27)
[2024-10-01] MEDS ORDERED: ESMOLOL 100 MG/10 ML VIAL ONE (12:27)
[2024-10-01] MEDS ORDERED: LIDOCAINE 1% INJ 10MG/ML (20 ML MDV) ONE (12:27)
[2024-10-01] MEDS ORDERED: ROCURONIUM 10 MG/ML (5 ML VIAL) IV ONE (12:27)
[2024-10-01] MEDS ORDERED: METOPROLOL TARTRATE 5 MG/5 ML VIAL IVP ONE (12:27)
[2024-10-01] MEDS ORDERED: SUCCINYLCHOLINE CHLORIDE 200 MG/10 ML VIAL IV ONE (12:27)
[2024-10-01] MEDS ORDERED: fentaNYL (PF) 50 MCG/ML 2 ML AMP ONE (12:27)
[2024-10-01 14:12] VITALS: TEMP 97.8
--- NOTE | 2024-10-01 14:20 | P.OP ---
Date of Procedure: 10/01/24 Preoperative Diagnosis: Bilateral renal calculi Postoperative Diagnosis: Same Procedure(s) Performed: Cystoscopy, bilateral ureteroscopy with Holmium laser lithotripsy and stone basketing, left ureteral stent insertion Anesthesia: DEBRA Surgeon: Magnus Luevano Estimated Blood Loss (ml): 5 IV fluids (ml): 700 Pathology: other (Renal calculi, sent for chemical analysis) Condition: stable Disposition: PACU Indications for Procedure: The patient is a 64-year-old white female with a history of kidney stones. She underwent excision of a parathyroid adenoma in November 2023, and her serum calcium level has normalized. CT scan shows small bilateral renal calculi. She reports midline low back pain as well as intermittent hematuria, and has elected to undergo ureteroscopic removal of her renal calculi. Operative Findings: Right lower pole renal calculus, fragmented and removed via stone basketing. 2 left renal calculi, 1 submucosal. Both fragmented and removed via stone basketing. Small left UPJ perforation noted, left ureteral stent placed. Description of Procedure: The patient was taken to the operating room and placed in the dorsolithotomy position, with legs supported in Ignacio stirrups. The external genitalia was prepped and draped sterilely. The 30 lens was used to introduce the 21-Honduran Torres cystoscopic sheath through the urethra and into the bladder under direct vision. The bladder was examined in its entirety. Both ureteral orifices were normal anatomic location and configuration, and clear urine effluxed from both. No tumors or foreign bodies were seen. A 0.038 inch Glidewire was passed through the cystoscope. The right ureteral orifice was cannulated, and the Glidewire was advanced up to the renal pelvis. The cystoscope was removed, and an 11/13-Honduran ureteral access catheter was passed over the wire, up to the proximal ureter. The Torres Plexxra flexible ureteroscope was then passed through the ureteral access catheter sheath, up to the renal pelvis. Each calyx was examined. With some difficulty, a 5 mm calculus was identified within a lower pole calyx. The 200 micron Holmium laser probe was passed through the ureteroscope, and lithotripsy was performed via a dusting mode to reduce the size of the calculus. A 1.9 Honduran 0 tip nitinol basket was then used to remove the stone nidus. The ureteroscope was then once again advanced up to the right renal pelvis, and each calyx was examined. No additional calculi were seen. The ureteroscope was withdrawn along with the ureteral access catheter sheath. Pullout ureteroscopy showed no evidence of ureteral trauma. The 30 lens was used to introduce the 21-Honduran Torres cystoscopic sheath through the urethra and into the bladder under direct vision. A 0.038 inch Glidewire was passed through the cystoscope. The left ureteral orifice was cannulated, and the Glidewire was advanced up to the renal pelvis. The cystoscope was removed, and an 11/13-Honduran ureteral access catheter was passed over the wire, up to the proximal ureter. The Torres Plexxra flexible ureteroscope was then passed through the ureteral access catheter sheath, up to the renal pelvis. The renal pelvis was small and poorly developed. Each calyx was examined. Within the mid to upper pole calyx, a submucosal calculus was identified. The 200 m holmium laser probe was passed through the ureteroscope, and lithotripsy was performed. The mucosa was incised, and the submucosal calculus was fragmented. After the calculus was diminished in size, a 4 mm stone nidus popped out of the submucosal cavity and was grasped and removed using the 1.9 Honduran nitinol basket. The ureteroscope was then passed back up to the kidney under direct vision, and a mid pole calculus was identified within a calyx which was difficult to reach due to narrowing of the infundibulum. Once again, lithotripsy was performed using a dusting mode to decrease the size of the calculus, which measured 5 to 6 mm, and the core of the calculus was then removed using the nitinol basket. The ureteroscope was passed back up to the kidney once again under direct vision, and at this time a small UPJ perforation was noted. No additional calculi were seen. The ureteroscope was passed up to an upper pole calyx, and contrast was injected to delineate the anatomy and confirm that this was indeed an upper pole calyx. A small amount of contrast extravasated from the UPJ perforation. The ureteroscope was slowly withdrawn under direct vision, with care taken to preserve the position of the Glidewire. There was no other evidence of ureteral trauma. The Glidewire was backloaded into the cystoscope, which was passed into the bladder. A 26 cm, 6 Honduran soft double-J ureteral stent was placed over the wire. Proper stent positioning was verified fluoroscopically and endoscopically. The bladder was emptied and the cystoscope removed. The patient tolerated the procedure well and was taken to the recovery room in stable condition. [facility] Report: Procedure Acuity: Elective Stone Size and Location: Ureteral Dilation: No Ureteral Access Sheath Used: Yes Stone Sent for Analysis: Yes All Stones/Fragments Were Removed with a Basket: Yes Complications: Small left UPJ perforation Preoperative Antibiotics Given: Yes Stent Placed: Yes (Left) If Stent Placed, Was String Left Attached: No If Stent Placed, When is it to be Removed: 4 weeks Discharge Medications: Toradol, tamsulosin, tolterodine
[2024-10-01 14:32] VITALS: RESP 16
[2024-10-01] MEDS: HYDROmorphone 0.5 MG/0.5 ML SYRINGE IVP PRN (14:33)
--- NOTE | 2024-10-01 14:33 | FL ---
EXAMINATION TYPE: FL urography retrograde DATE OF EXAM: 10/01/2024 2:24 PM COMPARISON: Pre Operative Images if available both CT/MRI or plain film CLINICAL INDICATION: Female, 64 years old with history of CYSTOSCOPY LITHOTRPSY BILATERAL RENAL CALCU LI; TECHNIQUE: FL urography retrograde, multiple fluoroscopic images provided for procedure. DAP: 0.59226 mGym2 Gycm2 uGym2 cGycm2 or equivalent. FINDINGS: Fluoroscopic images taken for renal stone. Renal stone identified projecting over the renal sinus. No evidence of pneumoperitoneum. Multilevel degeneration changes of the spine. IMPRESSION: 1. No evidence for intraoperative complication. 2. Please see the operative/procedural note for further details. [facility], , 10/01/2024 2:30 PM
[2024-10-01] MEDS: HYDROcodone/APAP 5-325MG 1 EACH TAB PO STA (15:35)
[2024-10-01] MEDS: KETOROLAC 15 MG/ML 1 ML VIAL IVP STA (16:04)
[2024-10-01 16:30] VITALS: BP 165/88; PULSE 60
== END 2024-10-01 17:04 | disposition home or self-care (01) ==
LOC: OR 09:55
PROVIDERS: ATTEND Urology
DX: N20.0 Calculus of kidney (principal); I10 Essential (primary) hypertension; Z86.73 Personal history of transient ischemic attack (TIA), and cerebral infarction without residual deficits; Z91.041 Radiographic dye allergy status; Z79.01 Long term (current) use of anticoagulants; Z79.899 Other long term (current) drug therapy
CPT/HCPCS: 52356; 85610; 82365; 74420; 74018; 52353; C1769; J2250; J0330; J1100; J2710; J0690; J2405; J2003; J3010; J1885; J2704; J1171; J1805; J1596

== ENCOUNTER 2024-10-03 20:43 | Inpatient (IN) | payer OTHER ==
[2024-10-03 20:48] VITALS: TEMP 98.5
--- NOTE | 2024-10-03 21:02 | ED ---
Arrhythmia/Palpitations HPI - General Chief Complaint: Arrhythmia/Palpitations Stated Complaint: Tachycardia Time Seen by Provider: 10/03/24 20:55 Source: patient, RN notes reviewed, old records reviewed Mode of arrival: ambulatory - History of Present Illness Initial Comments: This is a 64 female to the ER for evaluation. Patient comes in for severely elevated heart rate. Patient had recent surgery this morning. Surgery was on for kidney stones. Severe pain this main concern being heart racing feels like her heart is running and she is in a full sprint. Patient states this is causing her shortness of breath as well. MD Complaint: rapid heart beat, "heart racing", palpitations -: hour(s) Associated Symptoms: shortness of breath, near-syncope, anxiety Treatments Prior to Arrival: other (0) - Related Data Home Medications Medication Instructions Recorded Confirmed Multivitamin [Multivitamins Adult 1 each PO DAILY 05/29/17 10/01/24 Gummies] Rizatriptan Benzoate [Maxalt TRAVELING ACCOUNTANT] 10 mg PO DAILY PRN 05/29/17 10/01/24 Warfarin [Coumadin] 2.5 mg PO SUTH 05/29/17 10/01/24 Warfarin [Coumadin] 5 mg PO MOTUWEFRSA 05/29/17 10/01/24 Calcium Crb,Cit/D3/Min34/Stormy 1 each PO DAILY 09/29/24 10/01/24 [Citracal Plus Bone Density Tab] Cholecalciferol [Vitamin D3 (10 10 mcg PO DAILY 09/29/24 10/01/24 Mcg = 400 Iu)] hydroCHLOROthiazide 12.5 mg PO DAILY 09/29/24 10/01/24 Previous Rx's Medication Instructions Recorded Cephalexin [Keflex] 500 mg PO Q6HR 3 Days #9 cap 10/01/24 HYDROcodone/APAP 5-325MG [[place] 1 - 2 tab PO Q4HR PRN #6 tab 10/01/24 5-325] Tamsulosin [Flomax] 0.4 mg PO DAILY #30 cap 10/01/24 Trospium Chloride [Sanctura] 20 mg PO BID #60 tablet 10/01/24 Allergies Allergy/AdvReac Type Severity Reaction Status Date / Time Iodinated Contrast Media Allergy Rash/Hives Verified 10/03/24 20:48 [Iodinated Contrast- Oral and IV Dye] Review of Systems ROS Statement: Those systems with pertinent positive or pertinent negative responses have been documented in the HPI. ROS Other: All systems not noted in ROS Statement are negative. Past Medical History Past Medical History: CVA/TIA, Hypertension Additional Past Medical History / Comment(s): HX: CVA- 2011 no residual effects, migraines,kidney stones History of Any Multi-Drug Resistant Organisms: None Reported Past Surgical History: Section, Uterine Ablation Additional Past Surgical History / Comment(s): parathyroid adenoma removed 01/05 Past Anesthesia/Blood Transfusion Reactions: No Reported Reaction Past Psychological History: No Psychological Hx Reported Smoking Status: Never smoker Past Alcohol Use History: None Reported Past Drug Use History: None Reported - Past Family History Mother Family Medical History: Cancer Additional Family Medical History / Comment(s): bladder cancer Father Family Medical History: Cancer Additional Family Medical History / Comment(s): lymphoma Daughter(s) Family Medical History: Cancer Additional Family Medical History / Comment(s): thyroid General Exam General appearance: alert, in no apparent distress, anxious Head exam: Present: atraumatic, normocephalic, normal inspection Eye exam: Present: normal appearance, PERRL, EOMI. Absent: scleral icterus, conjunctival injection, periorbital swelling ENT exam: Present: normal exam, mucous membranes moist Neck exam: Present: normal inspection. Absent: tenderness, meningismus, lymph adenopathy Respiratory exam: Present: normal lung sounds bilaterally. Absent: respiratory distress, wheezes, rales, rhonchi, stridor Cardiovascular Exam: Present: normal rhythm, tachycardia, normal heart sounds. Absent: systolic murmur, diastolic murmur, rubs, gallop, clicks GI/Abdominal exam: Present: soft, normal bowel sounds. Absent: distended, tenderness, guarding, rebound, rigid Extremities exam: Present: normal inspection, full ROM, normal capillary refill. Absent: tenderness, pedal edema, joint swelling, calf tenderness Back exam: Present: normal inspection Neurological exam: Present: alert, oriented X3, CN II-XII intact Psychiatric exam: Present: normal affect, normal mood Skin exam: Present: warm, dry, intact, normal color. Absent: rash Course Vital Signs 10/03/24 10/03/24 20:45 21:40 Temperature 98.5 F Pulse Rate 163 H 129 H Respiratory 18 18 Rate Blood Pressure 170/111 137/86 O2 Sat by Pulse 96 95 Oximetry - Reevaluation(s) Reevaluation #1: 10/03/24 21:01 Medical records reviewed Reevaluation #2: 10/03/24 21:55 patient symptoms improving patient is already on, subtherapeutic as she just had surgery and came off medication for the surgery Reevaluation #3: 10/03/24 21:57 Patient informed of results questions answered Reevaluation #4: Was pt. sent in by a medical professional or institution (, ALF, OCCUPATIONAL NURSE, urgent care, hospital, or [facility]...) When possible be specific @ -no Did you speak to anyone other than the patient for history (EMS, parent, family, police, friend...)? What history was obtained from this source @ -no Did you review nursing and triage notes (agree or disagree)? Why? @ -agree Are old charts reviewed (outside hosp., previous admission, EMS record, old EKG, old radiological studies, urgent care reports/EKG's, [facility] records)? Report findings @ -yes Differential Diagnosis (chest pain, altered mental status, abdominal pain women, abdominal pain men, vaginal bleeding, weakness, fever, dyspnea, syncope, headache, dizziness, GI bleed, back pain, seizure, CVA, palpatations, mental health, musculoskeletal)? @ -prior EKG interpreted by me (3pts min.). @ -yes X-rays interpreted by me (1pt min.). @ -yes negative for acute disease CT interpreted by me (1pt min.). @ -no U/S interpreted by me (1pt. min.). @ -no What testing was considered but not performed or refused? (CT, X-rays, U/S, labs)? Why? @ -none What meds were considered but not given or refused? Why? @ -none Did you discuss the management of the patient with other professionals (professionals i.e. ALF [facility], OCCUPATIONAL NURSE, lab, RT, psych nurse, social insurance adviser, dumper central concrete mixing plant, teacher, biological technical officer, wrapper caser)? Give summary @ -no Was smoking cessation discussed for >3mins.? @ -no Was critical care preformed (if so, how long)? @ -no Were there social determinants of health that impacted care today? How? (Homelessness, low income, unemployed, alcoholism, drug addiction, transportation, low edu. Level, literacy, decrease access to med. care, usp, rehab)? @ -none Was there de-escalation of care discussed even if they declined (Discuss DNR or withdrawal of care, Hospice)? DNR status @ -no What co-morbidities impacted this encounter? (DM, HTN, Smoking, COPD, CAD, C ancer, CVA, ARF, Chemo, Hep., AIDS, mental health diagnosis, sleep apnea, morbid obesity)? @ -none Was patient admitted / discharged? Hospital course, mention meds given and route, prescriptions, significant lab abnormalities, going to OR and other pertinent info. @ - Undiagnosed new problem with uncertain prognosis? @ -no Drug Therapy requiring intensive monitoring for toxicity (Heparin, Nitro, Insulin, Cardizem)? @ -no Were any procedures done? @ -no Diagnosis/symptom? @ - Acute, or Chronic, or Acute on Chronic? @ -Acute Uncomplicated (without systemic symptoms) or Complicated (systemic symptoms)? @ -Complicated Side effects of treatment? @ -no Exacerbation, Progression, or Severe Exacerbation? @ -exacerbation Poses a threat to life or bodily function? How? (Chest pain, USA, PR, pneumonia, PE, COPD, DKA, ARF, appy, cholecystitis, CVA, Diverticulitis, Homicidal, Suicidal, threat to staff... and all critical care pts) @ -yes Reevaluation #5: Differential Palpitations Ventricular arrhythmias, atrial arrhythmias, myocardial infarction, anemia, thy rotoxicosis, electrolyte imbalance, hypokalemia, pulmonary embolism, pulmonary disease, drugs, alcohol, anxiety, stress.... This is not meant to be an all-inclusive list. - Consultations Consultation #1: Spoke with [facility] who agrees to admit this patient EKG Findings - EKG Comments: EKG Findings:: EKG is A-fib with RVR 158 QRS 88 QTc 394 - EKG Results: EKG: interpreted by HANY Medical Decision Making - Medical Decision Making 64 female to the ER for evaluation patient [facility] for A-fib with RVR will admit for cardiology evaluation and treatment patient is already on Coumadin given Lovenox shot - Lab Data Result diagrams: 10/03/24 21:18 Lab Results 10/03/24 Range/Units 21:18 WBC 13.7 H (3.8-10.6) k/uL RBC 4.88 (3.80-5.40) m/uL Hgb 14.8 (11.4-16.0) gm/dL Hct 44.4 (34.0-46.0) % MCV 90.9 (80.0-100.0) fL MCH 30.4 (25.0-35.0) pg MCHC 33.4 (31.0-37.0) g/dL RDW 13.1 (11.5-15.5) % Plt Count 241 (150-450) k/uL MPV 7.0 Neutrophils % 77 % Lymphocytes % 13 % Monocytes % 8 % Eosinophils % 0 % Basophils % 0 % Neutrophils # 10.6 H (1.3-7.7) k/uL Lymphocytes # 1.8 (1.0-4.8) k/uL Monocytes # 1.1 H (0-1.0) k/uL Eosinophils # 0.1 (0-0.7) k/uL Basophils # 0.0 (0-0.2) k/uL - Radiology Data Radiology results: report reviewed (CXR is negative for acute disease), image reviewed Critical Care Time Critical Care Time: Yes Total Critical Care Time: 31 Disposition Clinical Impression: Tachycardia, Palpitations, Atrial fibrillation, Atrial fibrillation with rapid ventricular response Disposition: ADMITTED IP TO THIS [facility] Condition: Fair Is patient prescribed a controlled substance at d/c from ED?: No Referrals: Emily Ayala MD [Primary Care Provider] - 1-2 days Time of Disposition: 22:00
[2024-10-03] MEDS: DILTIAZEM DRIP BOLUS FROM BAG 1 MG SOLN IV ONE (21:21)
[2024-10-03] MEDS: DILTIAZEM 125 MG in SODIUM CHLORIDE 0.9% 100 ML IV SCH (21:21)
[2024-10-03 21:29] LABS: Basophils % (A) 0 %; Eosinophils # (A) 0.1 k/uL (0-0.7); Eosinophils % (A) 0 %; HCT 44.4 % (34.0-46.0); HGB 14.8 gm/dL (11.4-16.0); Lymphocytes # (A) 1.8 k/uL (1.0-4.8); Lymphocytes % (A) 13 %; MCH 30.4 pg (25.0-35.0); MCHC 33.4 g/dL (31.0-37.0); MCV 90.9 fL (80.0-100.0); Monocytes # (A) 1.1 k/uL (0-1.0); Monocytes % (A) 8 %; Neutrophils # (A) 10.6 k/uL (1.3-7.7); Neutrophils % (A) 77 %; Platelet Count 241 k/uL (150-450); RBC 4.88 m/uL (3.80-5.40); RDW 13.1 % (11.5-15.5); WBC 13.7 k/uL (3.8-10.6)
--- NOTE | 2024-10-03 21:31 | XR ---
EXAMINATION TYPE: XR chest 1V portable DATE OF EXAM: 10/03/2024 9:22 PM COMPARISON: Chest radiographs from CT 05/16/2015 CLINICAL INDICATION: Female, 64 years old with history of cp; TECHNIQUE: XR chest 1V portable Frontal view of the chest. FINDINGS: Lungs/Pleura: There is no evidence of pleural effusion, focal consolidation, or pneumothorax. Left mcgraw prahilar nodule-like area is actually a vessel elongated in the AP dimension.. Tricuspid Pulmonary vascularity: Unremarkable. Heart/mediastinum: Cardiomediastinal silhouette is unremarkable. Musculoskeletal: No acute osseous pathology. IMPRESSION: No acute cardiopulmonary disease/process. [facility], , 10/03/2024 9:29 PM
[2024-10-03] MEDS: METOPROLOL TARTRATE 5 MG/5 ML VIAL IVP STA (21:40)
[2024-10-03] MEDS: SODIUM CHLORIDE 0.9% 1,000 ML IV ONE (21:40)
[2024-10-03] MEDS ORDERED: NALOXONE 0.4 MG/ML 1 ML VIAL IV PRN (21:53)
[2024-10-03] MEDS ORDERED: ONDANSETRON 4 MG/2 ML VIAL IVP PRN (21:53)
[2024-10-03 21:57] LABS: Partial Thromboplastin Time 20.9 sec (22.0-30.0); Prothrombin Time 11.3 sec (10.0-12.5)
[2024-10-03 22:09] LABS: ALT 18 U/L (4-34); AST 23 U/L (14-36); African American GFR (CKD) >90 (>60 ml/min/1.73 sqM); Alkaline Phosphatase 86 U/L (38-126); Anion Gap 10 mmol/L; Blood Urea Nitrogen 14 mg/dL (7-17); Calcium 9.1 mg/dL (8.4-10.2); Carbon Dioxide 27 mmol/L (22-30); Chloride 101 mmol/L (98-107); Glucose 142 mg/dL (74-99); Non-African American GFR(CKD) 85 (>60 ml/min/1.73 sqM); Phosphorus 2.3 mg/dL (2.5-4.5); Potassium 3.2 mmol/L (3.5-5.1); Sodium 138 mmol/L (137-145); Total Bilirubin 0.7 mg/dL (0.2-1.3); Total Protein 6.9 g/dL (6.3-8.2)
[2024-10-03 22:18] LABS: NT-Pro-B-Type Natriuretic Pept 188 pg/mL
[2024-10-03] MEDS: ONDANSETRON 4 MG/2 ML VIAL IVP STA (22:30)
[2024-10-03] MEDS: MORPHINE SULFATE 4 MG/ML SYRINGE IV STA (22:30)
[2024-10-03] MEDS: SODIUM CHLORIDE 0.9% 1,000 ML IV SCH ×2 (22:32→22:37)
[2024-10-03] MEDS: POTASSIUM BICARBONATE/CIT AC 20 MEQ TABLET.EFF PO ONE (22:35)
[2024-10-03] MEDS: ENOXAPARIN 80 MG/0.8 ML SYRINGE SQ STA (22:36)
[2024-10-03] MEDS: MAGNESIUM SULFATE-D5W PMX 1 GM in DEXTROSE/WATER 1 100ML.BAG IVPB ONE (22:40)
[2024-10-04] MEDS: MORPHINE SULFATE 4 MG/ML SYRINGE IV PRN (02:29)
--- NOTE | 2024-10-04 08:38 | P.HPIM ---
History of Present Illness This is a pleasant 64 years old female with past medical history of multiple medical problems including history of PFo all and history of stroke at age 51 currently on warfarin. She had recently had surgery for his bilateral kidney stones status post stone removal and stent placement on her left ureter with Dr. Hamilton. Patient presents because of recent heart rate of 1 day duration with no chest pain and mild dyspnea no coughing. No specific GI or symptoms. No headache dizziness weakness or numbness. Patient is not a smoker no alcohol no drugs. She denies any dysuria or urgency but states her urine is mildly red. No s uprapubic or flank pain. Currently she is on Cardizem drip Patient was tachycardic with heart rate 163 on admission, currently 81, labs including CBC, BMP LFT are unremarkable except for mild leukocytosis 13.7, troponin x 3 were negative. D-dimer 0.67. TSH 1.7. proBNP 188. EKG showing atrial fibrillation at rate of 158. Chest x-ray showing no acute process. Review of Systems Review of systems CONSTITUTIONAL: No fever, no malaise, no fatigue. HEENT: No recent visual problems or hearing problems. Denied any sore throat. CARDIOVASCULAR: No orthopnea, PND, no palpitations, no syncope. PULMONARY: No shortness of breath, no cough, no hemoptysis. GASTROINTESTINAL: No diarrhea, no nausea, no vomiting, no abdominal pain. Normoactive bowel sounds. NEUROLOGICAL: No headaches, no weakness, no numbness. HEMATOLOGICAL: Denies any bleeding or petechiae. GENITOURINARY: Denies any burning micturition, frequency, or urgency. MUSCULOSKELETAL/RHEUMATOLOGICAL: Denies any joint pain, swelling, or any muscle pain. ENDOCRINE: Denies any polyuria or polydipsia. Past Medical History Past Medical History: CVA/TIA, Hypertension Additional Past Medical History / Comment(s): HX: CVA- 2011 no residual effects, migraines,kidney stones History of Any Multi-Drug Resistant Organisms: None Reported Past Surgical History: Section, Uterine Ablation Additional Past Surgical History / Comment(s): parathyroid adenoma removed 01/05 Past Anesthesia/Blood Transfusion Reactions: No Reported Reaction Past Psychological History: No Psychological Hx Reported Smoking Status: Never smoker Past Alcohol Use History: None Reported Past Drug Use History: None Reported - Past Family History Mother Family Medical History: Cancer Additional Family Medical History / Comment(s): bladder cancer Father Family Medical History: Cancer Additional Family Medical History / Comment(s): lymphoma Daughter(s) Family Medical History: Cancer Additional Family Medical History / Comment(s): thyroid Medications and Allergies Home Medications Medication Instructions Recorded Confirmed Type Multivitamin [Multivitamins Adult 1 each PO DAILY 05/29/17 10/01/24 History Gummies] Rizatriptan Benzoate [Maxalt HAND POLISHER] 10 mg PO DAILY PRN 05/29/17 10/01/24 History Warfarin [Coumadin] 2.5 mg PO SUTH 05/29/17 10/01/24 History Warfarin [Coumadin] 5 mg PO MOTUWEFRSA 05/29/17 10/01/24 History Calcium Crb,Cit/D3/Min34/Stormy 1 each PO DAILY 09/29/24 10/01/24 History [Citracal Plus Bone Density Tab] Cholecalciferol [Vitamin D3 (10 10 mcg PO DAILY 09/29/24 10/01/24 History Mcg = 400 Iu)] hydroCHLOROthiazide 12.5 mg PO DAILY 09/29/24 10/01/24 History Cephalexin [Keflex] 500 mg PO Q6HR 3 Days #9 cap 10/01/24 Rx HYDROcodone/APAP 5-325MG [[place] 1 - 2 tab PO Q4HR PRN #6 tab 10/01/24 Rx 5-325] Tamsulosin [Flomax] 0.4 mg PO DAILY #30 cap 10/01/24 Rx Trospium Chloride [Sanctura] 20 mg PO BID #60 tablet 10/01/24 Rx Allergies Allergy/AdvReac Type Severity Reaction Status Date / Time Iodinated Contrast Media Allergy Rash/Hives Verified 10/03/24 20:48 [Iodinated Contrast- Oral and IV Dye] Physical Exam Vitals: Vital Signs Temp Pulse Resp BP Pulse Ox 10/04/24 08:31 85 17 143/94 98 10/04/24 06:00 81 17 138/86 99 10/04/24 02:32 96 18 166/98 98 10/03/24 21:40 129 H 18 137/86 95 10/03/24 20:45 98.5 F 163 H 18 170/111 96 Intake and Output 10/03/24 10/04/24 10/04/24 22:59 06:59 14:59 Other: Weight 79.379 kg GENERAL: The patient is alert and oriented x3, not in any acute distress. Well developed, well nourished. HEENT: Pupils are round and equally reacting to light. EOMI. No scleral icterus. No conjunctival pallor. Normocephalic, atraumatic. No pharyngeal erythema. No thyromegaly. CARDIOVASCULAR: S1 and S2 present. No murmurs, rubs, or gallops. PULMONARY: Chest is clear to auscultation, no wheezing , no crackles. ABDOMEN: Soft, nontender, nondistended, normoactive bowel sounds. No palpable organomegaly. MUSCULOSKELETAL: No joint swelling or deformity. EXTREMITIES: No cyanosis, clubbing, or pedal edema. NEUROLOGICAL: Gross neurological examination did not reveal any focal deficits. SKIN: No rashes. no petechiae. Results CBC & Chem 7: 10/03/24 21:18 10/03/24 21:18 Labs: Abnormal Lab Results - Last 24 Hours (Table) 10/03/24 10/03/24 10/03/24 Range/Units 21:18 21:18 21:18 WBC 13.7 H (3.8-10.6) k/uL Neutrophils # 10.6 H (1.3-7.7) k/uL Monocytes # 1.1 H (0-1.0) k/uL APTT 20.9 L (22.0-30.0) sec D-Dimer 0.67 H (<0.60) mg/L FEU Potassium 3.2 L (3.5-5.1) mmol/L Glucose 142 H (74-99) mg/dL Phosphorus 2.3 L (2.5-4.5) mg/dL Assessment and Plan Assessment: A-fib and RVR Recent bilateral stent removal and left ureteral stent placement History of PFO AND STROKE ON WARFARIN AT HOME Hypertension Plan: Continue with Cardizem drip. Resume warfarin and follow-up INR. Cardiology team consult. Patient had recent ureteral surgery, will continue close monitoring and follow- up. Labs and medication were reviewed.. Continue same treatment. Continue with symptomatic treatment. Resume home medication. Monitor labs and vitals. DVT and GI prophylaxis. Further recommendations as per clinical course of the patient DVT prophylaxis: on warfarin, continue with subcutaneous heparin still therapeutic GI Prophylaxis: Pepcid PT/OT: Pending Prognosis is guarded
--- NOTE | 2024-10-04 09:36 | P.CRDCN ---
History of Present Illness Consult date: 10/04/24 Consult reason: atrial fibrillation History of present illness: This is Rohan Dye NP, I'm dictating on behalf of Dr. Bueno's H&P and A&P The patient was interviewed and examined. HPI: Patient is a pleasant 64-year-old female with a past medical history that includes CVA in 2011 with no residual deficits, migraines, kidney stones, and hypertension who presented to the hospital with complaints of a severely elevated heart rate. Patient had kidney stone removal 3 days ago. She presented to the emergency department on the advice of her son-in-law who is an anesthesiologist, reporting that she notified him as her watch notified her that she had an elevated heart rate while at rest. Patient states she had absolutely no symptoms, including dizziness, lightheadedness, shortness of breath, or heart palpitations. EKG demonstrated 2-1 atrial tachycardia/A-fib. She was started on diltiazem and spontaneously converted. This morning the patient reports that she feels fine. She denies any symptoms. She is noted to be normal sinus rhythm on telemetry. ROS: [No fever, chills, or rigors] [no cough, phlegm, or expectoration] [no nausea, vomiting, or diarrhea] [no hematuria, dysuria] [no musculoskelatal complaints] [no strokes or seizures] [no skin lesions] EXAMINATION: GENERAL: Well-appearing, well-nourished and in no acute distress. NECK: Supple without JVD or thyromegaly. LUNGS: Breath sounds clear to auscultation bilaterally. Respiration equal and unlabored. No wheezes, rales or rhonchi. HEART: Regular rate and rhythm without murmurs, rubs or gallops. S1 and S2 heard. EXTREMITIES: Normal range of motion, no edema. No clubbing or cyanosis. Peripheral pulses intact and strong. REVIEW OF LABS, ECG & MEDICAL DATA: LABS: White count 13.7, hemoglobin 14.8, platelets 241, D-dimer 0.67, sodium 138, potassium 3.2, BUN 14, creatinine 0.75, magnesium 2, troponin-less than 0.012, 0.029, BNP 188, TSH 1.7 EK10/03/2024 at 2056-atrial fibrillation with rapid ventricular response, rate 158; 10/04/2024 at 0003-normal sinus rhythm IMAGING: Chest x-ray dated 10/03/2024 demonstrates no acute cardiopulmonary disease/process. VITALS: Temp 98.5, pulse 85, respirations 17, blood pressure 143/94, O2 saturation 98% on room air IMPRESSION: 1. 2-1 atrial tachycardia/atrial fibrillation 2. Hypertension 3. Recent kidney stone removal PLAN: Discontinue Cardizem. Start metoprolol 50 mg twice daily. Discontinue warfarin, start Eliquis 5 mg twice daily. Discontinue heparin. If patient is still stable by this evening, she may be discharged from a cardiology standpoint. Thank you for the consult and allowing us to participate in the care of this patient. Past Medical History Past Medical History: CVA/TIA, Hypertension Additional Past Medical History / Comment(s): HX: CVA- 2011 no residual effects, migraines,kidney stones History of Any Multi-Drug Resistant Organisms: None Reported Past Surgical History: Section, Uterine Ablation Additional Past Surgical History / Comment(s): parathyroid adenoma removed 01/05 Past Anesthesia/Blood Transfusion Reactions: No Reported Reaction Past Psychological History: No Psychological Hx Reported Smoking Status: Never smoker Past Alcohol Use History: None Reported Past Drug Use History: None Reported - Past Family History Mother Family Medical History: Cancer Additional Family Medical History / Comment(s): bladder cancer Father Family Medical History: Cancer Additional Family Medical History / Comment(s): lymphoma Daughter(s) Family Medical History: Cancer Additional Family Medical History / Comment(s): thyroid Medications and Allergies Home Medications Medication Instructions Recorded Confirmed Type Multivitamin [Multivitamins Adult 1 tab PO DAILY 05/29/17 10/04/24 History Gummies] Rizatriptan Benzoate [Maxalt JUICE TESTER] 10 mg PO DAILY PRN 05/29/17 10/04/24 History Warfarin [Coumadin] 5 mg PO MOTUWEFRSA@2100 05/29/17 10/04/24 History Calcium Crb,Cit/D3/Min34/Stormy 1 tab PO DAILY 09/29/24 10/04/24 History [Citracal Plus Bone Density Tab] Cholecalciferol [Vitamin D3 (10 10 mcg PO DAILY 09/29/24 10/04/24 History Mcg = 400 Iu)] hydroCHLOROthiazide 12.5 mg PO DAILY 09/29/24 10/04/24 History Tamsulosin [Flomax] 0.4 mg PO DAILY #30 cap 10/01/24 10/04/24 Rx Trospium Chloride [Sanctura] 20 mg PO BID #60 tablet 10/01/24 10/04/24 Rx HYDROcodone/APAP 5-325MG [[place] 1 - 2 tab PO Q4HR PRN 10/04/24 10/04/24 History 5-325] Warfarin [Coumadin] 2.5 mg PO SUTH@2100 10/04/24 10/04/24 History Allergies Allergy/AdvReac Type Severity Reaction Status Date / Time Iodinated Contrast Media Allergy Rash/Hives Verified 10/04/24 08:48 [Iodinated Contrast- Oral and IV Dye] Physical Exam Vitals: Vital Signs Temp Pulse Resp BP Pulse Ox 10/04/24 08:31 85 17 143/94 98 10/04/24 06:00 81 17 138/86 99 10/04/24 02:32 96 18 166/98 98 10/03/24 21:40 129 H 18 137/86 95 10/03/24 20:45 98.5 F 163 H 18 170/111 96 Intake and Output 10/03/24 10/04/24 10/04/24 22:59 06:59 14:59 Other: Weight 79.379 kg Results 10/03/24 21:18 10/03/24 21:18 Cardiac Enzymes 10/03/24 10/03/24 10/04/24 Range/Units 21:18 21:18 00:04 AST 23 (14-36) U/L Troponin I <0.012 <0.012 (0.000-0.034) ng/mL 10/04/24 Range/Units 03:04 AST (14-36) U/L Troponin I 0.029 (0.000-0.034) ng/mL Coagulation 10/03/24 Range/Units 21:18 PT 11.3 (10.0-12.5) sec APTT 20.9 L (22.0-30.0) sec CBC 10/03/24 Range/Units 21:18 WBC 13.7 H (3.8-10.6) k/uL RBC 4.88 (3.80-5.40) m/uL Hgb 14.8 (11.4-16.0) gm/dL Hct 44.4 (34.0-46.0) % Plt Count 241 (150-450) k/uL Comprehensive Metabolic Panel 10/03/24 Range/Units 21:18 Sodium 138 (137-145) mmol/L Potassium 3.2 L (3.5-5.1) mmol/L Chloride 101 (98-107) mmol/L Carbon Dioxide 27 (22-30) mmol/L BUN 14 (7-17) mg/dL Creatinine 0.75 (0.52-1.04) mg/dL Glucose 142 H (74-99) mg/dL Calcium 9.1 (8.4-10.2) mg/dL AST 23 (14-36) U/L ALT 18 (4-34) U/L Alkaline Phosphatase 86 (38-126) U/L Total Protein 6.9 (6.3-8.2) g/dL Albumin 4.0 (3.5-5.0) g/dL Current Medications Generic Name Dose Route Start Last Admin Trade Name Freq PRN Reason Stop Dose Admin Famotidine 20 mg 10/04/24 09:00 Famotidine 20 Mg/2 Ml Vial IV Q12HR CHRISTIANE Sodium Chloride 1,000 mls @ 130 mls/hr 10/03/24 21:00 10/04/24 03:54 Saline 0.9% IV Not Given .[id number] CHRISTIANE Sodium Chloride 1,000 mls @ 75 mls/hr 10/03/24 22:00 10/03/24 22:37 Saline 0.9% IV 75 mls/hr .[id number] CHRISTIANE Administration Miscellaneous Information 1 each 10/03/24 21:58 Warfarin Per Pharmacy MISCELLANE DIRECTED PRN Per Protocol Protocol Morphine Sulfate 4 mg 10/03/24 21:53 10/04/24 02:29 Morphine Sulfate 4 Mg/Ml Syringe IV 4 mg Q4HR PRN Administration Severe Pain (Scale 7 to 10) Naloxone HCl 0.2 mg 10/03/24 21:53 Naloxone 0.4 Mg/Ml 1 Ml Vial IV Q2M PRN Opioid Reversal Ondansetron HCl 4 mg 10/03/24 21:53 Ondansetron 4 Mg/2 Ml Vial IVP Q8HR PRN Nausea And Vomiting Warfarin Sodium 5 mg 10/04/24 18:00 Warfarin 5 Mg Tab PO 10/04/24 18:01 ONCE@1800 ONE Intake and Output 10/03/24 10/04/24 10/04/24 22:59 06:59 14:59 Other: Weight 79.379 kg 10/03/24 21:18 10/03/24 21:18
[2024-10-04] MEDS: METOPROLOL TARTRATE 50 MG TAB PO SCH (10:21)
[2024-10-04] MEDS: APIXABAN 5 MG TAB PO SCH (10:21)
[2024-10-04] MEDS: FAMOTIDINE 20 MG/2 ML VIAL IV SCH (10:23)
[2024-10-04] MEDS ORDERED: HEPARIN SODIUM,PORCINE 5,000 UNIT/ML 1 ML VIAL SQ SCH (16:00)
[2024-10-04 16:18] LABS: Appearance,Urine Bloody (Clear); Color,Urine Dark Red; RBC,Urine >182 /hpf (0-5); WBC,Urine 29 /hpf (0-5)
[2024-10-04] MEDS ORDERED: WARFARIN 5 MG TAB PO ONE (18:00)
[2024-10-04] MEDS ORDERED: WARFARIN 2.5 MG TAB PO SCH (18:00)
[2024-10-05 07:43] LABS: Prothrombin Time 11.1 sec (10.0-12.5)
[2024-10-05 07:44] LABS: Basophils % (A) 0 %; Eosinophils # (A) 0.3 k/uL (0-0.7); Eosinophils % (A) 3 %; HCT 40.6 % (34.0-46.0); HGB 13.7 gm/dL (11.4-16.0); Lymphocytes % (A) 24 %; MCHC 33.7 g/dL (31.0-37.0); MCV 92.2 fL (80.0-100.0); Mean Platelet Volume 7.1; Monocytes # (A) 0.8 k/uL (0-1.0); Monocytes % (A) 9 %; Neutrophils # (A) 5.1 k/uL (1.3-7.7); Neutrophils % (A) 61 %; Platelet Count 244 k/uL (150-450); RBC 4.41 m/uL (3.80-5.40); RDW 13.1 % (11.5-15.5); WBC 8.3 k/uL (3.8-10.6)
[2024-10-05 07:45] LABS: Magnesium 2.2 mg/dL (1.6-2.3); Potassium 3.8 mmol/L (3.5-5.1)
--- NOTE | 2024-10-05 08:28 | P.GSCN ---
History of Present Illness Consult date: 10/05/24 Reason for Consult: Hematuria Requesting physician: Isai Pfeiffer History of present illness: The patient is a 64-year-old white female with a history of kidney stones. She underwent excision of a parathyroid adenoma in November 2023, and her serum calcium level has normalized. CT scan shows small bilateral renal calculi. She reports midline low back pain as well as intermittent hematuria, and thus elected to undergo ureteroscopic removal of her renal calculi. This was performed on October 01, 2024, and a left ureteral stent was placed. She presented to the ER over the weekend due to the fact that her Apple Watch showed that she was tachycardic. She had no symptoms attributable to her tachycardia. She denies dysuria and flank pain but does report gross hematuria without clots. Review of Systems - Genitourinary Genitourinary: Reports as per HPI Past Medical History Past Medical History: CVA/TIA, Hypertension Additional Past Medical History / Comment(s): HX: CVA- 2011 no residual effects, migraines,kidney stones History of Any Multi-Drug Resistant Organisms: None Reported Past Surgical History: Section, Uterine Ablation Additional Past Surgical History / Comment(s): parathyroid adenoma removed 01/05 Past Anesthesia/Blood Transfusion Reactions: No Reported Reaction Past Psychological History: No Psychological Hx Reported Smoking Status: Never smoker Past Alcohol Use History: None Reported Past Drug Use History: None Reported - Past Family History Mother Family Medical History: Cancer Additional Family Medical History / Comment(s): bladder cancer Father Family Medical History: Cancer Additional Family Medical History / Comment(s): lymphoma Daughter(s) Family Medical History: Cancer Additional Family Medical History / Comment(s): thyroid Medications and Allergies Home Medications Medication Instructions Recorded Confirmed Type Multivitamin [Multivitamins Adult 1 tab PO DAILY 05/29/17 10/04/24 History Gummies] Rizatriptan Benzoate [Maxalt PMO LEAD] 10 mg PO DAILY PRN 05/29/17 10/04/24 History Warfarin [Coumadin] 5 mg PO MOTUWEFRSA@2100 05/29/17 10/04/24 History Calcium Crb,Cit/D3/Min34/Stormy 1 tab PO DAILY 09/29/24 10/04/24 History [Citracal Plus Bone Density Tab] Cholecalciferol [Vitamin D3 (10 10 mcg PO DAILY 09/29/24 10/04/24 History Mcg = 400 Iu)] hydroCHLOROthiazide 12.5 mg PO DAILY 09/29/24 10/04/24 History Tamsulosin [Flomax] 0.4 mg PO DAILY #30 cap 10/01/24 10/04/24 Rx Trospium Chloride [Sanctura] 20 mg PO BID #60 tablet 10/01/24 10/04/24 Rx HYDROcodone/APAP 5-325MG [[place] 1 - 2 tab PO Q4HR PRN 10/04/24 10/04/24 History 5-325] Warfarin [Coumadin] 2.5 mg PO SUTH@2100 10/04/24 10/04/24 History Allergies Allergy/AdvReac Type Severity Reaction Status Date / Time Iodinated Contrast Media Allergy Rash/Hives Verified 10/04/24 08:48 [Iodinated Contrast- Oral and IV Dye] Surgical - Exam Vital Signs Temp Pulse Resp BP Pulse Ox 98.5 F 163 H 18 170/111 96 10/03/24 20:45 10/03/24 20:45 10/03/24 20:45 10/03/24 20:45 10/03/24 20:45 - General well developed, well nourished, no distress - Respiratory normal respiratory effort - Psychiatric oriented to time, oriented to person, oriented to place, speech is normal, memory intact Results - Labs 10/05/24 07:17 10/05/24 07:17 Abnormal Lab Results - Last 24 Hours (Table) 10/04/24 Range/Units 15:52 Urine Appearance Bloody H (Clear) Urine RBC >182 H (0-5) /hpf Urine WBC 29 H (0-5) /hpf Diabetes panel 10/05/24 Range/Units 07:17 Potassium 3.8 (3.5-5.1) mmol/L Pituitary panel 10/05/24 Range/Units 07:17 Potassium 3.8 (3.5-5.1) mmol/L Adrenal panel 10/05/24 Range/Units 07:17 Potassium 3.8 (3.5-5.1) mmol/L Assessment and Plan (1) Gross hematuria Current Visit: Yes Status: Acute Code(s): R31.0 - GROSS HEMATURIA SNOMED Code(s): 341598736 Plan: The cause of Mrs. Alexis's hematuria is undoubtedly the combination of a renal incision made in order to remove an intraparenchymal calculus, the presence of a ureteral stent, and her anticoagulants. She was reassured that this will resolve when her stent is removed. She is urologically stable for discharge.
--- NOTE | 2024-10-05 09:26 | P.PN ---
Subjective Progress Note Date: 10/05/24 The patient is a 64-year-old female patient who was admitted to the hospital with A-fib RVR and subsequently she converted to normal sinus mechanism. She was started on oral anticoagulation with Eliquis. She is also on beta-lisa. October 05, 2024 The patient was seen and evaluated this morning and she is asymptomatic at this point with a slightly tachycardia and sinus mechanism with ongoing to increase the dose of beta-lisa with metoprolol to 75 mg p.o. twice daily. From the cardiovascular standpoint of view, the patient can be discharged home. The physical examination is remarkable for regular rhythm with a soft systolic murmur and clear breathing sounds bilaterally. Assessment Status post kidney stone procedure Paroxysmal atrial fibrillation Plan Continue the current medical regimen including the current dose of Eliquis Increase the dose of beta-lisa The patient can be discharged home Objective - Vital Signs Vital signs: Vital Signs Temp 98.5 F 10/03/24 20:45 Pulse 82 10/05/24 02:00 Resp 18 10/05/24 02:00 BP 133/92 10/05/24 02:00 Pulse Ox 98 10/05/24 02:00 FiO2 Intake & Output 10/04/24 10/05/24 10/05/24 18:59 06:59 18:59 Output Total 100 Balance -100 Output: Post Void Residual 100 - Labs CBC & Chem 7: 10/05/24 07:17 10/05/24 07:17 Labs: Abnormal Lab Results - Last 24 Hours (Table) 10/04/24 Range/Units 15:52 Urine Appearance Bloody H (Clear) Urine RBC >182 H (0-5) /hpf Urine WBC 29 H (0-5) /hpf
[2024-10-05 10:02] VITALS: BP 139/90; PULSE 89; RESP 17
[2024-10-05] MEDS ORDERED: WARFARIN 5 MG TAB PO SCH (18:00)
[2024-10-05] MEDS ORDERED: METOPROLOL TARTRATE 25 MG TAB PO SCH (21:00)
--- NOTE | 2024-10-05 21:51 | P.DS ---
Providers Date of admission: 10/03/24 21:54 Attending physician: Iasi Pfeiffer Consults: 10/03/24 21:53 Consult Physician Routine Consulting Provider: Jacinda Harris Consult Reason/Comments: [id number] Do you want consulting provider notified?: Yes 10/04/24 14:45 Consult Physician Routine Consulting Provider: Magnus Luevano Consult Reason/Comments: possible hematuria , recent stent placement Do you want consulting provider notified?: Yes Primary care physician: Emily Ayala [facility] Course: diagnoses A-fib and RVR Recent bilateral stent removal and left ureteral stent placement History of PFO AND STROKE ON WARFARIN AT HOME Hypertension Hospital course: This is a pleasant 64 years old female with past medical history of multiple medical problems including history of PFO and history of stroke at age 51 currently on warfarin. She had recently had surgery for his bilateral kidney stones status post stone removal and stent placement on her left ureter with Dr. Hamilton. Patient presents because of racing heart rate of 1 day duration with no chest pain and mild dyspnea no coughing. Patient evaluated by sheet folder. Heart rate controlled with metoprolol 75 mg twice daily. Also she was started on Eliquis. I checked with the pharmacy her co-pay is $50 a month, as per my discussion with the patient she is okay with that. However pharmacy staff will try to get her a co-pay discount down to $10 per month. Patient denies any other new complaint She is having some hematuria and she is evaluated by urologist which is expected given her stent. Urologist recommended she follow-up as an outpatient and she agrees. Hemoglobin and vitals stable Patient was cleared for discharge by sheet folder and urologist Problems and management plan were discussed with the patient and he verbalized understanding and acceptance Patient was found stable and can be discharged home in guarded prognosis however he needs follow-up as an outpatient. Patient was instructed to follow up with PCP within one week and patient agrees Patient was instructed to follow-up with sheet folder Dr. Harris in [address] Dimas in 3 weeks after discharge and she agrees Physical exam Gen: patient is a AAOx3, no distress CVS: S1-S2, RRR, no murmur Lungs: B/L CTA, no wheezing Abdomen: soft, no distention, no tenderness, positive bowel sounds Extremity: no leg edema or induration Time spent more than 35 minutes Patient Condition at Discharge: Fair Plan - Discharge Summary New Discharge Prescriptions: New Apixaban [Eliquis] 5 mg PO BID #60 tab Metoprolol Tartrate [Lopressor] 75 mg PO BID #200 tab Continue Rizatriptan Benzoate [Maxalt IMAGING ANALYST] 10 mg PO DAILY PRN PRN Reason: Headache Multivitamin [Multivitamins Adult Gummies] 1 tab PO DAILY Cholecalciferol [Vitamin D3 (10 Mcg = 400 Iu)] 10 mcg PO DAILY Tamsulosin [Flomax] 0.4 mg PO DAILY #30 cap HYDROcodone/APAP 5-325MG [[place] 5-325] 1 - 2 tab PO Q4HR PRN PRN Reason: Moderate To Severe Pain (4-10) Calcium Crb,Cit/D3/Min34/Stormy [Citracal Plus Bone Density Tab] 1 tab PO DAILY Discontinued Warfarin [Coumadin] 5 mg PO MOTUWEFRSA@2100 hydroCHLOROthiazide 12.5 mg PO DAILY Warfarin [Coumadin] 2.5 mg PO SUTH@2100 No Action Trospium Chloride [Sanctura] 20 mg PO BID #60 tablet Discharge Medication List Multivitamin [Multivitamins Adult Gummies] 1 tab PO DAILY 05/29/17 [History] Rizatriptan Benzoate [Maxalt IMAGING ANALYST] 10 mg PO DAILY PRN 05/29/17 [History] Calcium Crb,Cit/D3/Min34/Stormy [Citracal Plus Bone Density Tab] 1 tab PO DAILY 09/29/24 [History] Cholecalciferol [Vitamin D3 (10 Mcg = 400 Iu)] 10 mcg PO DAILY 09/29/24 [Histo ry] Tamsulosin [Flomax] 0.4 mg PO DAILY #30 cap 10/01/24 [Rx] Trospium Chloride [Sanctura] 20 mg PO BID #60 tablet 10/01/24 [Rx] HYDROcodone/APAP 5-325MG [[place] 5-325] 1 - 2 tab PO Q4HR PRN 10/04/24 [History] Apixaban [Eliquis] 5 mg PO BID #60 tab 10/05/24 [Rx] Metoprolol Tartrate [Lopressor] 75 mg PO BID #200 tab 10/05/24 [Rx] Follow up Appointment(s)/Referral(s): Emily Ayala MD [Primary Care Provider] - 1-2 days Jacinda Harris MD [STAFF PHYSICIAN] - 1 Week Magnus Luevano MD [STAFF PHYSICIAN] - 3 Weeks Activity/Diet/Wound Care/Special Instructions: Heart healthy diet Activity is restricted till you see your doctor Discharge Disposition: HOME WITH HOME HEALTH SERVICES
== END 2024-10-05 11:56 | disposition home health service (06) | DRG 310 ==
LOC: EC 20:43 → 3SCARD 21:54
PROVIDERS: ADMIT Hospitalist; ATTEND Hospitalist
DX: I48.0 Paroxysmal atrial fibrillation (principal); F41.9 Anxiety disorder, unspecified; I10 Essential (primary) hypertension; N20.0 Calculus of kidney; I47.19 Other supraventricular tachycardia; R31.0 Gross hematuria; Z79.01 Long term (current) use of anticoagulants; Z79.899 Other long term (current) drug therapy; Z80.7 Family history of other malignant neoplasms of lymphoid, hematopoietic and related tissues; Z86.73 Personal history of transient ischemic attack (TIA), and cerebral infarction without residual deficits; Z87.442 Personal history of urinary calculi; Z91.041 Radiographic dye allergy status
CPT/HCPCS: 36415; 71045; 80053; 81001; 83605; 83735; 83880; 84100; 84132; 84443; 84484; 85025; 85379; 85610; 85730; 93005; 96361; 96365; 96366; 96368; 96372; 96375; 96376; 99291

== ENCOUNTER → 2024-12-01 | Outpatient (CLI) | payer OTHER ==
--- NOTE | 2024-12-01 11:07 | US ---
EXAMINATION TYPE: US kidneys/renal and bladder DATE OF EXAM: 12/01/2024 COMPARISON: CT: 09/11/24, US: 07/10/17 CLINICAL INDICATION: Female, 64 years old with history of N20.0 CALCULUS OF KIDNEY; calculus of kidne y. Pt states she had surgery a month ago to remove 3 renal stones on left and had stent placed. Pt st ates the stent is already removed. TECHNIQUE: Grayscale imaging of the bilateral kidneys and urinary bladder: FINDINGS: EXAM MEASUREMENTS: Right Kidney: 10.9 x 5.1 x 4.1 cm Left Kidney: 10.5 x 4.3 x 5.1 cm Right Kidney: echogenic focus seen mid pole measuring 0.3cm Left Kidney: No hydronephrosis or masses seen . Echogenic foci present. Bladder: wnl Bilateral Jets seen: Yes There is no evidence for hydronephrosis at this point in time. No masses are identified. The urinar y bladder is anechoic. IMPRESSION: Nonobstructing bilateral renal calculi redemonstrated. No hydronephrosis seen currently. [facility], , 12/01/2024 11:05 AM
== END | disposition home or self-care (01) ==
LOC: RADUSWWP 10:03
PROVIDERS: ATTEND Urology
DX: N20.0 Calculus of kidney (principal)
CPT/HCPCS: 76770